=== PATIENT | male | born 1980 | race Caucasian/White ===

== ENCOUNTER 2018-09-04 03:52 | Emergency (ER) | payer MEDICARE, OTHER ==
[~2018-09-04] VITALS: Ht 175.3 cm; Wt 95.2 kg
[2018-09-04] MEDS ORDERED: ERYT1OIN RIGHTEYE (04:43)
[2018-09-04] MEDS ORDERED: ACULAR5 ML RIGHTEYE (04:43)
== END 2018-09-04 05:01 | disposition home or self-care (01) ==
LOC: ER 03:52
DX: S05.01XA Injury of conjunctiva and corneal abrasion without foreign body, right eye, initial encounter (principal); W22.8XXA Striking against or struck by other objects, initial encounter
CPT/HCPCS: 99282